=== PATIENT | male | born 1980 | race Caucasian/White ===

== ENCOUNTER 2017-02-19 21:53 | Emergency (ER) | payer SELFPAY ==
[~2017-02-19] VITALS: Ht 193 cm; Wt 102.0 kg
--- NOTE | ~2017-02-19 | CT2 ---
[facility] [place] [facility]IOLOG[place] TEXT RESULTS PATIENT: MARY JANE NOWAK LOCATION: SED : 76 UNIT #: [id number] AGE: [address]: Carlo Vasquez MD SEX: M ORDER DR: [id number] [place] [id number] E MR#: [id number] Acc #: [id number] NAME: MARY JANE NOWAK. : 1980 SEX: M STUDY DATE/TIME: 02/20/2017 0:24 UNIT: SED ROOM: STUDY DESCRIPTION: CT Abd and Pelv W Cont Attending Physician: Carlo Vasquez M.D. Ordering Physician: Carlo Vasquez M.D. MEDICAL IMAGING REPORT This report is preliminary unless electronic signature is present. EXAM CT abdomen and pelvis with contrast INDICATIONS Epigastric abdominal pain, nausea and vomiting with jaundice, beginning 1 week ago. PROCEDURE Contrast-enhanced CT of the abdomen and pelvis. The CT exam was performed with one or more of the following radiation dose reduction techniques: automatic exposure control, adjustment of mA and/or kV according to patient size, and iterative reconstruction. [id number]: None FINDINGS Abdomen with contrast: Included lung bases are clear. Liver is enlarged measuring 20.8 cm. There is periportal edema. Gallbladder wall thickening without evidence for radiodense gallstones. Probably reactive. There are 3 subcentimeter hypodensities in the left hepatic lobe nonspecific but probably small cysts. Spleen upper limits of normal 12.9 cm. The portal vein is patent. The kidneys, adrenal glands, pancreas are unremarkable. Bowel loops are nondilated. Pelvis with contrast: No pelvic mass or fluid. No aggressive appearing bone lesion. [facility] [place] [facility] RADIOLOGY TEXT RESULTS PATIENT: MARY JANE NOWAK LOCATION: SED : 76 UNIT #: [id number] AGE: [address]: Calro Vasquez MD SEX: M ORDER DR: IMPRESSION 1. Hepatomegaly. Periportal edema and presumed reactive gallbladder wall thickening suggesting liver inflammation. 2. Three subcentimeter hypodensities left hepatic lobe indeterminate but probably small cysts. These could be further characterized with MRI or liver protocol CT if desired clinically. Dictated by... Florentino Armenta M.D. THIS IS AN ELECTRONICALLY VERIFIED REPORT Florentino Armenta M.D. at 02/20/2017 10:02 PM CLYDE/flory TD: 02/20/2017 09:46 JOB #: [id number] MEDICAL IMAGING REPORT Page 1 of 1
[~2017-02-19 21:53] MED LIST: NO MEDICATIONS; VOLTAREN75 MG PO
[2017-02-19 22:55] LABS: BASOPHIL% 0.2 % (0-2.5); EOSINOPHIL# 0.2 X10e3 (0-0.7); EOSINOPHIL% 3.8 % (0.0-7.0); HEMATOCRIT 44.7 % (38.0-50.0); HEMOGLOBIN 15.5 gm/dL (13.0-16.0); LYMPHOCYTE# 1.3 X10e3 (1.0-3.5); LYMPHOCYTE% 20.7 % (17.0-45.0); MEAN CELL VOLUME 90.5 FL (83-96); MEAN CORPUSCULAR HEMOGLOBIN 31.4 PG (28-34); MEAN CORPUSCULAR HGB CONC 34.7 g/dL (30-36); MEAN PLATELET VOLUME 9.2 FL (6.5-11.5); MONOCYTE# 0.9 X10e3 (0-1.0); MONOCYTE% 13.9 % (3.0-12.0); NEUTROPHIL% 61.4 % (40-75); PLATELET COUNT 172 X10e3 (140-420); RED BLOOD COUNT 4.94 X10e (3.90-5.60); RED CELL DISTRIBUTION WIDTH 15.6 % (11.0-15.5); WHITE BLOOD COUNT 6.5 X10e3 (4.0-10.5)
[2017-02-19 22:57] LABS: DIFF IND NO
[2017-02-19 22:58] LABS: INR 1.3; PROTHROMBIN TIME (PATIENT) 14.7 SECONDS (9.5-12.4)
[2017-02-19 23:06] LABS: PARTIAL THROMBOPLASTIN TIME 31.8 SECONDS (25.6-38.1)
[2017-02-19 23:08] LABS: ALBUMIN SERUM 3.2 g/dL (3.5-5.0); BILIRUBIN,TOTAL 15.8 mg/dL (0.2-2.0); BUN/CREATININE RATIO 17.14; CALCIUM SERUM 8.4 mg/dL (8.4-10.2); CREATININE SERUM 0.7 mg/dL (0.6-1.4); GLOM FILT RATE Estimated 119.8 mL/min (>60); POTASSIUM 3.5 mmol/L (3.5-5.1); PROTEIN TOTAL SERUM 6.8 g/dL (6.0-8.3)
[2017-02-20 01:15] LABS: ACETAMINOPHEN <10 ug/mL; ALCOHOL BLOOD <5 mg/dL ([0,])
[2017-02-20 01:26] LABS: URINE SOURCE CLEAN CATCH
[2017-02-20 01:28] LABS: URINE APPEARANCE CLEAR; URINE BILIRUBIN POS (NEG); URINE BLOOD NEG (NEG); URINE COLOR AMBER; URINE KETONE TRACE (NEG); URINE LEUKOCYTE ESTERASE NEG (NEG); URINE NITRATE NEG (NEG); URINE PH 6.5 (5-8); URINE PROTEIN NEG (NEG); URINE SPECIFIC GRAVITY <=1.005 (1.003-1.035)
[2017-02-20 01:38] LABS: AMPHETAMINE NEG (NEG); BARBITURATES NEG (NEG); BENZODIAZEPINES NEG (NEG); COCAINE NEG (NEG); MARIJUANA POS (NEG); OPIATES NEG (NEG); TRICYCLIC ANTIDEPRESSANTS NEG (NEG); U METHADONE NEG (NEG)
[2017-02-20 01:40] LABS: CULTURE INDICATED? NO; MICRO INDICATED? YES; URINE BACTERIA NEG (NEG); URINE GLUCOSE NORM (NORM); URINE ICTOTEST POS (NEG); URINE RBC 0-2 /[HPF] (0-2); URINE WBC 0-2 /[HPF] (0-5)
[2017-02-20 01:41] LABS: URINE CRYSTALS CALCIUM OXALATE /[HPF]; URINE MUCUS PRESENT
== END 2017-02-20 02:18 | disposition home or self-care (01) ==
LOC: SED 21:53
PROVIDERS: Emergency Medicine
DX: B17.9 Acute viral hepatitis, unspecified (principal); F17.200 Nicotine dependence, unspecified, uncomplicated
CPT/HCPCS: 36415; 74177; 80053; 80307; 81003; 85025; 85610; 85730; 99284; G0480; Q9967